=== PATIENT | male | born 1995 | race African-American/Black ===

== ENCOUNTER 2018-06-25 00:56 | Emergency (ER) | payer SELFPAY ==
[2018-06-25] MEDS ORDERED: Ketorolac Tromethamine 30 MG/ML VIAL ONE (01:56)
[2018-06-25] MEDS ORDERED: Lidocaine 1% w/Epinephrine 1:100K 20 ML VIAL ONE (01:56)
[2018-06-25] MEDS ORDERED: Morphine 4 MG/ML VIAL ONE (01:56)
--- NOTE | 2018-06-25 08:13 | CT ---
PRELIMINARY REPORT: CT Head Without Contrast EXAM DATE/TIME: 06/25/2018 1:18 AM CLINICAL HISTORY: 23 years old, male; Injury or trauma; Injury history: Head trauma; Initial encounter; Abrasion; Patie nt HX: Head lac, hit by branch, positive loc. TECHNIQUE: Imaging protocol: Axial computed tomography images of the head/brain without contrast. COMPARISON: No relevant prior studies available. FINDINGS: Brain: No brain edema. No intracranial hemorrhage. Ventricles: Normal. No ventriculomegaly. Bones/joints: Unremarkable. No acute fracture. Sinuses: Visualized sinuses are unremarkable. No acute sinusitis. Mastoid air cells: Visualized mastoid air cells are unremarkable. No mastoid effusion. Soft tissues: Left lateral scalp laceration. IMPRESSION: No acute brain findings. Thank you for allowing us to participate in the care of your patient. Dictated and Authenticated by: Meño Cooper MD 06/25/2018 1:28 AM Central Time ([place] & [place]) Emergency after-hours noncontrast CT head: HISTORY: Level 2 trauma. Head injury just prior to arrival. Tree branch fell on patient. IMPRESSION: 1. No acute intracranial abnormality is demonstrated. 2. Lateral left parietal scalp laceration and hematoma. No underlying calvarial fracture is seen. 3. Findings are in agreement with the preliminary report by [facility]. Transcribed Date/Time: 06/25/2018 8:27 AM
--- NOTE | 2018-06-25 08:15 | CT ---
PRELIMINARY REPORT: CT Cervical Spine Without Contrast EXAM DATE/TIME: 06/25/2018 1:20 AM CLINICAL HISTORY: 23 years old, male; Injury or trauma; Injury history: Head trauma; Patient HX: Head lac, hit by branc h, positive loc. TECHNIQUE: Imaging protocol: Axial computed tomography images of the cervical spine without intravenous contrast. Coronal and sagittal reformatted images were created and reviewed. COMPARISON: No relevant prior studies available. FINDINGS: Vertebrae: No acute fracture. Normal alignment. Discs/Spinal canal/Neural foramina: No spinal stenosis. No neural foraminal narrowing. Soft tissues: Unremarkable. Lungs: Lung apices are normal. IMPRESSION: No acute findings. Thank you for allowing us to participate in the care of your patient. Dictated and Authenticated by: Meño Cooper MD 06/25/2018 1:31 AM Central Time ([place] & [place]) Emergency after-hours CT cervical spine: HISTORY: Level 2 trauma. Head injury just prior to arrival. Tree branch fell on patient. TECHNIQUE: Contiguous axial CT images are obtained through the cervical spine from skull base to leve l of the T2 vertebral body. Sagittal and coronal reformatted images are provided. IMPRESSION: 1. No fracture or subluxation is seen involving the cervical spine. 2. Findings are in agreement with the preliminary report by [facility]. Code QA Transcribed Date/Time: 06/25/2018 8:28 AM
--- NOTE | 2018-06-25 09:18 | RAD ---
LEFT SHOULDER THREE VIEWS: INDICATIONS: Pain. Injury. FINDINGS: There is no fracture or dislocation. IMPRESSION: No acute osseous abnormality of the left shoulder. POS: [facility]
--- NOTE | 2018-06-25 09:31 | RAD ---
EXAM: CHEST ONE VIEW HISTORY: Trauma. Head laceration. Hit by a branch. Positive LOC. COMPARISON: None FINDINGS: The cardiac silhouette and pulmonary vasculature is within normal limits. The lungs are clear. No pne umothorax or pleural effusion is seen. The osseous structures are intact. IMPRESSION: No acute cardiopulmonary process.
== END 2018-06-25 02:44 | disposition home or self-care (01) ==
LOC: ERS 00:56
DX: S01.01XA Laceration without foreign body of scalp, initial encounter (principal); S40.012A Contusion of left shoulder, initial encounter; W20.8XXA Other cause of strike by thrown, projected or falling object, initial encounter
CPT/HCPCS: 12004; 70450; 71045; 72125; 96374; 96375; G0390; J1885; J2001; J2270